=== PATIENT | female | born 1985 | race African-American/Black ===

== ENCOUNTER 2021-08-28 23:29 | Emergency (ER) | payer MEDICAID ==
[~2021-08-28] VITALS: Ht 170.2 cm; Wt 130.0 kg
[2021-08-29] MEDS ORDERED: BACITRACIN ZINC OINT UDPKT TOP ONE (00:15)
[2021-08-29] MEDS ORDERED: NAPR-681 MT (01:25)
[2021-08-29] MEDS ORDERED: BO1 TP (01:26)
[2021-08-29 01:31] VITALS: BP 134/82
== END 2021-08-29 01:45 | disposition home or self-care (01) ==
LOC: ER 23:29
DX: M25.561 Pain in right knee (principal); R55 Syncope and collapse; F41.9 Anxiety disorder, unspecified
CPT/HCPCS: 73562; 81025; 93005; 99283